=== PATIENT | male | born 2000 | race African-American/Black ===

== ENCOUNTER 2024-11-26 08:04 | Emergency (ER) | payer OTHER ==
[~2024-11-26] VITALS: Ht 167.6 cm; Wt 90.8 kg
[2024-11-26] MEDS: ONDANSETRON 4MG ORAL DISINTEGRATING TAB PO ONE (12:54)
[2024-11-26] MEDS: ACETAMINOPHEN 500 MG TAB PO ONE (12:54)
[2024-11-26] MEDS: IBUPROFEN 600MG TAB PO ONE (12:54)
[2024-11-26] MEDS ORDERED: ONDA-282 PO (13:46)
[2024-11-26 14:02] VITALS: BP 116/56; TEMP 98; O2SAT 98
== END 2024-11-26 14:09 | disposition home or self-care (01) ==
LOC: M ED 08:04
DX: B34.9 Viral infection, unspecified (principal); Z79.83 Long term (current) use of bisphosphonates